=== PATIENT | female | born 1990 | race Caucasian/White ===

== ENCOUNTER 2017-10-14 11:13 | Emergency (ER) | payer OTHER ==
[~2017-10-14] VITALS: Ht 152.4 cm; Wt 54.4 kg
[2017-10-14 11:23] VITALS: BP 116/79; Ht 152.4 cm; Wt 54.4 kg
== END 2017-10-14 11:52 | disposition home or self-care (01) ==
LOC: ED 11:13
DX: S01.412D Laceration without foreign body of left cheek and temporomandibular area, subsequent encounter (principal); X58.XXXD Exposure to other specified factors, subsequent encounter